=== PATIENT | male | born 1955 | race American Indian/Alaskan Native ===

== ENCOUNTER 2016-10-06 13:35 | Emergency (ER) | payer OTHER ==
[2016-10-06 14:03] VITALS: BP 152/60; PULSE 72; RESP 18; TEMP 98.2; O2SAT 99
[2016-10-06] MEDS ORDERED: HYDROmorphone 0.5 mg/0.5 ml ISec IVP STA ×2 (15:17→17:20)
[2016-10-06] MEDS ORDERED: HYDROmorphone 0.5 mg/0.5 ml ISec ONE ×2 (15:22→17:19)
--- NOTE | 2016-10-06 15:25 | ED PDOC ---
HPI: Back Time Seen by Provider: 10/06/16 15:05 Chief Complaint (Nursing): Back Pain Chief Complaint (Provider): Back Pain History Per: Patient History/Exam Limitations: no limitations Onset/Duration Of Symptoms: Days (5x) Current Symptoms Are (Timing): Still Present Severity: Moderate Previous Symptoms: Back Pain Exacerbating Factor(s): Other (coughing) Additional Complaint(s): 60 year old male with a pertinent medical history of 2 herniated disks and a previous visit to the ED for sciatica (2 years ago) presents to the ED today with complaints of left lower back and left buttock pain that started 5x days ago. He says that today his left upper leg is numb. He reports that 7x days ago he went to a garden with his daughter where they shoveled and he did strenuous lifting with a wheelbarrow. His daughter had back pain that resolved after 2x days, which is when the patient's back pain started. His back pain is exacerbated by coughing. He reports taking 3 aleve tablets 5x hours prior to arrival. He denies having any other medical complaints. PMD: Patient does not recall Past Medical History Reviewed: Historical Data, Nursing Documentation, Vital Signs Vital Signs: Last Vital Signs Temp 98.2 F 10/06/16 14:00 Pulse 72 10/06/16 14:00 Resp 18 10/06/16 14:00 BP 152/60 H 10/06/16 14:00 Pulse Ox 99 10/06/16 14:00 - Medical History PMH: Hypercholesterolemia, Obstructive Bowel - Surgical History Surgical History: Appendectomy (ruptured) - Family History Family History: States: Unknown Family Hx - Social History Alcohol: Occasional Drugs: Denies - Immunization History Hx Influenza Vaccination: Yes (2 days ago) Hx Pneumococcal Vaccination: No - Home Medications Home Medications: Ambulatory Orders Medication Instructions Recorded Acetaminophen/Oxycodone Hydr 1 - 2 tab PO Q4H PRN #10 tab 03/17/15 [Percocet 10/325 mg Tab] Ibuprofen 600 mg PO Q8 PRN #21 tab 03/17/15 Tobramycin [Tobramycin 5 ml] 1 drop TOP ASDIR #1 bottle 03/26/15 Naproxen [Naprosyn Tab] 375 mg PO Q8 PRN #21 tab 10/06/16 diaZEpam [Valium] 5 mg PO Q6 PRN #10 tab 10/06/16 oxyCODONE/Acetaminophen [Percocet 1 ea PO Q6 PRN #12 tab 10/06/16 5/325 mg Tab] - Allergies Allergies/Adverse Reactions: Allergies Allergy/AdvReac Type Severity Reaction Status Date / Time No Known Allergies Allergy Verified 10/06/16 13:59 Review of Systems ROS Statement: Except As Marked, All Systems Reviewed And Found Negative Musculoskeletal: Positive for: Back Pain (lower back and left buttock pain) Neurological: Positive for: Numbness (left upper leg) Physical Exam - Reviewed Nursing Documentation Reviewed: Yes Vital Signs Reviewed: Yes - Physical Exam Appears: Positive for: Well, Non-toxic, No Acute Distress Head Exam: Positive for: ATRAUMATIC, NORMOCEPHALIC Skin: Positive for: Normal Color Eye Exam: Positive for: Normal appearance Neck: Positive for: Normal, Painless ROM Cardiovascular/Chest: Positive for: Regular Rate, Rhythm, Chest Non Tender Respiratory: Positive for: Normal Breath Sounds. Negative for: Respiratory Distress Back: Positive for: Normal Inspection. Negative for: Vertebral Tenderness (no vertebral tenderness ellicited, patient noted he has tenderness in left buttock area.) Neurologic/Psych: Positive for: Alert, Oriented (3x), Other (5/5 strength both lower extremities) - ECG O2 Sat by Pulse Oximetry: 99 (RA) Pulse Ox Interpretation: Normal - Progress ED Course And Treament: diaudid 0.5 mg x 2nd dose toradol 15 mg iv x 1 dose [place] rx reviewed: no history noted in system. Medical Decision Making Medical Decision Makin:05 Initial impression: 60 year old male with left lower back pain and left buttock pain. Initial plan: * dilaudid .5mg IVP * zofran 4mg IVP * reevaluation Scribe Attestation: Documented by Oriana Enriquez, acting as a scribe for Donna Menezes PA-C. Provider Scribe Attestation: All medical record entries made by the Scribe were at my direction and personally dictated by me. I have reviewed the chart and agree that the record accurately reflects my personal performance of the history, physical exam, medical decision making, and the department course for this patient. I have also personally directed, reviewed, and agree with the discharge instructions and disposition. Disposition - Clinical Impression Clinical Impression: Back pain - Patient ED Disposition Is Patient to be Admitted: No - Disposition Referrals: [facility] [Outside] Disposition: Routine/Home Disposition Time: 18:50 Condition: FAIR Prescriptions: diaZEpam [Valium] 5 mg PO Q6 PRN #10 tab PRN Reason: Muscle Spasm Naproxen [Naprosyn Tab] 375 mg PO Q8 PRN #21 tab PRN Reason: Pain, Moderate (4-7) oxyCODONE/Acetaminophen [Percocet 5/325 mg Tab] 1 ea PO Q6 PRN #12 tab PRN Reason: Pain, Severe (8-10) Instructions: Back Pain (ED)
== END 2016-10-06 18:40 | disposition home or self-care (01) ==
LOC: H.ER 13:35
DX: M54.5 Low back pain (principal); E78.00 Pure hypercholesterolemia, unspecified; R05 Cough